=== PATIENT | male | born 1955 | race Caucasian/White ===

== ENCOUNTER → 2021-02-21 | Outpatient (CLI) | payer OTHER ==
[~2021-02-21] MED LIST: ACID CONTROL75 MG PO; ALLEGRA180 MG PO; BAYER CHEWABLE81 MG PO; CO Q-10100 MG PO; CRESTOR5 MG PO; DEPO-TESTO200 MG/1 M IM; KRILL OIL500 MG PO; MULTI VITAMIN1 EACH PO; RHINOCORT AQUA8.6 GM NASAL; VITAMINC500 PO
== END ==
LOC: CAT 08:49
PROVIDERS: ATTEND Family Medicine
DX: Z13.6 Encounter for screening for cardiovascular disorders (principal); I25.10 Atherosclerotic heart disease of native coronary artery without angina pectoris; E78.00 Pure hypercholesterolemia, unspecified